=== PATIENT | female | born 1960 | race Caucasian/White ===

== ENCOUNTER → 2016-05-24 | Day surgery (SDC) | payer BC ==
[~2016-05-24] VITALS: Ht 165.1 cm; Wt 62.2 kg
[~2016-05-24] MED LIST: ASPIRIN LO-DOSE81 MG PO; CALCIUM + VITA1 EACH PO; CELEXA10 MG PO; LEVOTHROID (S150 MCG PO; NORCO 5-325 TA1 EACH PO; ZOCOR10 MG PO
--- NOTE | ~2016-05-24 | OR ---
PATIENT'S NAME: SAMANTA BHANDARI [facility] AGE: 56 Y [address] ROOM: [place] [address] LOCATION: [facility] ADMIT DATE: 05/24/2016 OR/Procedure Report DISCHARGE DATE: FAMILY PHYSICIAN: Willem Chase MD ATTENDING PHYSICIAN: Diann Perez SURGEON: Diann Perez MD GAMING FLOOR SUPERVISOR: Everett Mccormack PA-C. DATE OF PROCEDURE: 05/24/2016 PREOPERATIVE DIAGNOSIS: Invasive left breast cancer. POSTOPERATIVE DIAGNOSIS: Invasive left breast cancer. PROCEDURE PERFORMED: 1. Left wire-directed lumpectomy. 2. Left axillary sentinel node biopsy. 3. Injection of Lymphazurin dye for localization of sentinel node. ANESTHESIA: General endotracheal. SPECIMEN: Left axillary sentinel node as well as left breast lump as well as a further posterolateral margin. REASON FOR PROCEDURE: The patient is a 56-year-old female who recently had a mammographic abnormality in the central portion of the left breast. A biopsy confirmed this to be a grade 2 invasive cancer. After discussing treatment options, she elected to proceed with lumpectomy and sentinel node biopsy. PROCEDURE IN DETAIL: After her wire localization, the patient was taken to the operating suite and placed in the supine position. General endotracheal anesthesia was obtained, and the left breast and axilla were prepped with ChloraPrep and sterilely draped. Prior to prepping the patient, we had injected Lymphazurin dye subcutaneous around the nipple-areolar complex. The Neoprobe scanner was used to localize an area in the left axilla. A 3-cm incision was then made over this area and extended down to the axillary fascia. A blue sentinel node was found and excised. Baseline counts were less than 10% of the excised lymph node. The wound was then closed with some deep Vicryl and a subcuticular Monocryl. Next, an incision was made in the upper midportion of the breast approximately 4 cm in length. A portion of breast tissue about 5 cm in diameter circling the end of the wire was excised using cautery. We did extend all the way down to the chest wall. Along the end of the wire, I was concerned that the margin may be somewhat close and we did send a separate posterolateral margin to reassess the margins and make sure they were good. There were no signs of any ongoing bleeding. This wound was also closed with a deep Vicryl and then a subcuticular Monocryl. [place], PATIENT'S NAME: SAMANTA BHANDARI [facility] AGE: 56 Y [address] ROOM: [place] [address] LOCATION: [facility] ADMIT DATE: 05/24/2016 OR/Procedure Report DISCHARGE DATE: FAMILY PHYSICIAN: Willem Chase MD ATTENDING PHYSICIAN: Diann Perez Steri-Strips, and gauze dressings were applied to both incisions. POSTPROCEDURE PLAN: The patient will be discharged home when awake and alert. We will follow up on the pathology report. I will plan on rechecking her in [place] in a couple of weeks. DIANN PEREZ MD JTM/modl /[id number] CC: Willem Chase MD d: 05/24/16 1941 t: 06/02/16 0814, OPERATIVE SUMMARY
== END | disposition disaster alternative care site (69) ==
LOC: GOPD 05-17
PROC: 0HBU0ZZ Excision of Left Breast, Open Approach (ICD-10-PCS; principal; 2016-05-24)
PROC: 0HBU0ZX Excision of Left Breast, Open Approach, Diagnostic (ICD-10-PCS; 2016-05-24)
PROC: 0HHU01Z Insertion of Radioactive Element into Left Breast, Open Approach (ICD-10-PCS; 2016-05-24)
DX: C50.112 Malignant neoplasm of central portion of left female breast (principal); F17.210 Nicotine dependence, cigarettes, uncomplicated; Z90.710 Acquired absence of both cervix and uterus; Z79.82 Long term (current) use of aspirin; Z79.899 Other long term (current) drug therapy
CPT/HCPCS: A9520; J0690; J2001; J7120

== ENCOUNTER → 2016-07-08 | Outpatient (CLI) | payer BC | END | disposition disaster alternative care site (69) | LOC: GRAD 07-04 12:00 | DX: C50.112 Malignant neoplasm of central portion of left female breast (principal); Z85.43 Personal history of malignant neoplasm of ovary; Z84.81 Family history of carrier of genetic disease; Z90.12 Acquired absence of left breast and nipple | CPT/HCPCS: A9577; C8908 ==